=== PATIENT | male | born 1995 | race Two or more races ===

== ENCOUNTER 2021-03-07 02:54 | Emergency (ER) | payer OTHER ==
[~2021-03-07] VITALS: Ht 182.9 cm; Wt 90.7 kg
[2021-03-07] MEDS ORDERED: ONDANSETRON ODT4 MG PO (10:22)
[2021-03-07] MEDS ORDERED: PEPCID AC20 MG PO (10:22)
== END 2021-03-07 10:33 | disposition home or self-care (01) ==
LOC: ER 02:54
DX: K29.70 Gastritis, unspecified, without bleeding (principal); R06.02 Shortness of breath; Z11.52 Encounter for screening for COVID-19